=== PATIENT | female | born 1960 | race Caucasian/White ===

== ENCOUNTER 2020-08-11 10:03 | Day surgery (SDC) | payer BC ==
[2020-08-05 15:32] VITALS: BMI 35.4
[2020-08-11 10:43] VITALS: BP 127/70; PULSE 72; TEMP 98
[2020-08-11] MEDS ORDERED: LIDOCAINE HCL/PF 2% SDV 5ML VIAL ONE (11:13)
[2020-08-11] MEDS ORDERED: PROPOFOL 20 ML ONE (11:13)
[2020-08-11] MEDS ORDERED: ROCURONIUM BROMIDE 50 MG/5 ML SYRINGE ONE (11:14)
[2020-08-11] MEDS ORDERED: SUCCINYLCHOLINE CHLORIDE 200 MG/10 ML SYRINGE ONE (11:16)
[2020-08-12] MEDS ORDERED: MIDAZOLAM HCL 2 MG/2 ML SINGLE DOSE VIAL ONE (06:55)
[2020-08-12] MEDS ORDERED: ROPIVACAINE HCL 0.5% 30ML VIAL ONE (06:55)
[2020-08-12] MEDS ORDERED: BUPIVACAINE HCL/PF 0.25% (2.5MG/ML) 10 ML VIAL ONE (07:08)
== END 2020-08-11 12:00 | disposition home or self-care (01) ==
LOC: FASUSAT 10:03 → FM/S 10:03 → UNDOADMIN 10:03 → FASUSAT 12:00
PROVIDERS: ATTEND Surgery
PROC: 0D164ZB Bypass Stomach to Ileum, Percutaneous Endoscopic Approach (ICD-10-PCS; principal; 2020-08-11)
DX: Z53.8 Procedure and treatment not carried out for other reasons (principal); E66.01 Morbid (severe) obesity due to excess calories; Z68.35 Body mass index [BMI] 35.0-35.9, adult
CPT/HCPCS: 82962

== ENCOUNTER 2020-08-12 06:37 | Inpatient (IN) | payer BC ==
[~2020-08-12 06:37] MED LIST: BUPIVACAINE HCL/PF 0.25% (2.5MG/ML) 10 ML VIAL IJ ONE
[2020-08-12] MEDS ORDERED: PROMETHAZINE HCL 25 MG/1 ML VIAL IVPUSH PRN (07:11)
[2020-08-12] MEDS ORDERED: oxyCODONE HCL 5 MG TABLET PO PRN (07:11)
[2020-08-12] MEDS ORDERED: ONDANSETRON 4 MG/2 ML VIAL IVPUSH PRN ×2 (07:11→10:58)
[2020-08-12 07:12] VITALS: BMI 35.4
[2020-08-12] MEDS ORDERED: LACTATED RINGERS SOLUTION 1,000 ML IV SCH (07:15)
[2020-08-12] MEDS ORDERED: PROPOFOL 20 ML ONE (07:47)
[2020-08-12] MEDS ORDERED: ROCURONIUM BROMIDE 50 MG/5 ML SYRINGE ONE ×2 (07:48→09:08)
[2020-08-12] MEDS ORDERED: ceFAZolin SODIUM 1 GM VIAL ONE (08:25)
[2020-08-12] MEDS ORDERED: SODIUM CHLORIDE 0.9% P/F 10 ML VIAL IJ ONE (08:25)
[2020-08-12] MEDS ORDERED: DEXAMETHASONE SOD PHOSPHATE 4 MG/1 ML VIAL ONE ×2 (08:28→10:37)
[2020-08-12] MEDS ORDERED: ONDANSETRON 4 MG/2 ML VIAL ONE ×2 (08:28→10:37)
[2020-08-12] MEDS ORDERED: METOPROLOL TARTRATE 5 MG/5 ML VIAL ONE (10:05)
[2020-08-12] MEDS ORDERED: NEOSTIGMINE METHYLSULFATE 0.5 MG/ML - 10 ML MDV ONE (10:16)
[2020-08-12] MEDS ORDERED: GLYCOPYRROLATE 0.2 MG/1 ML VIAL ONE (10:16)
[2020-08-12] MEDS ORDERED: BUPIVACAINE HCL/PF 0.25% (2.5MG/ML) 10 ML VIAL IJ ONE (10:36)
[2020-08-12] MEDS ORDERED: MIDAZOLAM HCL 2 MG/2 ML SINGLE DOSE VIAL ONE (10:53)
[2020-08-12] MEDS ORDERED: HYDROmorphone HCl 2 MG/ML VIAL IVPB PRN (10:59)
[2020-08-12] MEDS ORDERED: SODIUM CHLORIDE 1,000 ML IV SCH (11:00)
[2020-08-12] MEDS ORDERED: ACETAMINOPHEN 1000 MG/100 ML VIAL (NON FORMULARY) IVPB ONE (11:01)
[2020-08-12 11:27] LABS: HEMATOCRIT 38.8 % (32.4-45.2); HEMOGLOBIN 12.7 GM/dl (10.7-15.3); MCHC 32.8 g/dl (32.0-36.0); MEAN CELL VOLUME 73.1 fl (80-96); MEAN PLT VOLUME 8.4 fl (7.5-11.1); PLATELET COUNT 433 K/MM3 (134-434); RBC 5.31 M/mm3 (3.60-5.2); RDW 15.2 % (11.6-15.6); WHITE BLOOD COUNT 13.2 K/mm3 (4.0-10.8)
[2020-08-12] MEDS ORDERED: ACETAMINOPHEN INJECTION 100 ML IVPB ONE (11:27)
[2020-08-12] MEDS ORDERED: FAMOTIDINE 20 MG/50 ML IVPB 20 MG/50 ML MG IVPB ONE (11:27)
[2020-08-12] MEDS ORDERED: METOCLOPRAMIDE HCL INJECTION 10 MG/2 ML VIAL ONE (11:27)
[2020-08-12] MEDS: METOCLOPRAMIDE HCL INJECTION 10 MG/2 ML VIAL IVPUSH SCH ×3 (11:30→23:07)
[2020-08-12] MEDS ORDERED: FAMOTIDINE 20 MG PREMIXED IVPB IVPB ONE (11:32)
[2020-08-12 11:34] LABS: ALBUMIN 3.6 g/dl (3.4-5.0); CALCIUM 7.7 mg/dl (8.5-10); POTASSIUM 4.7 mmol/L (3.5-5.1); TOT PROT 6.8 g/dl (6.4-8.2)
[2020-08-12] MEDS: HYDROmorphone HCl 2 MG/ML VIAL IVPB PRN ×2 (15:15→20:10)
[2020-08-12 20:14] LABS: HEMATOCRIT 37.4 % (32.4-45.2); HEMOGLOBIN 12.1 GM/dl (10.7-15.3); MCH 23.5 pg (25.7-33.7); MCHC 32.3 g/dl (32.0-36.0); MEAN CELL VOLUME 72.6 fl (80-96); MEAN PLT VOLUME 8.1 fl (7.5-11.1); PLATELET COUNT 431 K/MM3 (134-434); RBC 5.15 M/mm3 (3.60-5.2); RDW 14.9 % (11.6-15.6); WHITE BLOOD COUNT 13.9 K/mm3 (4.0-10.8)
[2020-08-12] MEDS: FAMOTIDINE 20 MG/50 ML IVPB 20 MG/50 ML MG IVPB SCH (21:12)
[2020-08-12 21:45] LABS: ALBUMIN 3.3 g/dl (3.4-5.0); BILIRUBIN,TOTAL 0.4 mg/dl (0.2-1); CALCIUM 7.3 mg/dl (8.5-10); CREATININE 0.9 mg/dl (0.55-1.3); TOT PROT 6.6 g/dl (6.4-8.2)
[2020-08-12 21:48] LABS: POTASSIUM 5.4 mmol/L (3.5-5.1)
[2020-08-12 22:24] LABS: ALBUMIN 3.5 g/dl (3.4-5.0); BILIRUBIN,TOTAL 0.1 mg/dl (0.2-1); CALCIUM 7.6 mg/dl (8.5-10); CREATININE 0.9 mg/dl (0.55-1.3); POTASSIUM 5.1 mmol/L (3.5-5.1); TOT PROT 6.6 g/dl (6.4-8.2)
[2020-08-13] MEDS: HYDROmorphone HCl 2 MG/ML VIAL IVPB PRN ×2 (01:24→19:52)
[2020-08-13] MEDS: METOCLOPRAMIDE HCL INJECTION 10 MG/2 ML VIAL IVPUSH SCH ×4 (06:48→22:45)
[2020-08-13 07:54] LABS: HEMATOCRIT 34.3 % (32.4-45.2); HEMOGLOBIN 10.7 GM/dl (10.7-15.3); MCH 23.1 pg (25.7-33.7); MCHC 31.2 g/dl (32.0-36.0); MEAN PLT VOLUME 8.3 fl (7.5-11.1); PLATELET COUNT 419 K/MM3 (134-434); RBC 4.64 M/mm3 (3.60-5.2); RDW 14.7 % (11.6-15.6); WHITE BLOOD COUNT 13.4 K/mm3 (4.0-10.8)
[2020-08-13 08:01] LABS: ALBUMIN 3.3 g/dl (3.4-5.0); CALCIUM 7.2 mg/dl (8.5-10); CREATININE 0.8 mg/dl (0.55-1.3); POTASSIUM 3.9 mmol/L (3.5-5.1); TOT PROT 6.1 g/dl (6.4-8.2)
[2020-08-13 08:09] LABS: BILIRUBIN,TOTAL 0.3 mg/dl (0.2-1)
[2020-08-13] MEDS: FAMOTIDINE 20 MG/50 ML IVPB 20 MG/50 ML MG IVPB SCH ×2 (09:48→21:23)
[2020-08-13] MEDS ORDERED: PT OWN MED DRAWER 7, Y5N ONE (12:32)
[2020-08-13] MEDS ORDERED: SODIUM CHLORIDE 1,000 ML IV SCH ×2 (13:00→19:15)
[2020-08-14] MEDS: HYDROmorphone HCl 2 MG/ML VIAL IVPB PRN (02:36)
[2020-08-14] MEDS: METOCLOPRAMIDE HCL INJECTION 10 MG/2 ML VIAL IVPUSH SCH ×3 (05:13→10:58)
[2020-08-14 09:00] VITALS: BP 138/78; PULSE 76
[2020-08-14] MEDS: FAMOTIDINE 20 MG/50 ML IVPB 20 MG/50 ML MG IVPB SCH (09:22)
[2020-08-14 11:41] VITALS: TEMP 98.5
== END 2020-08-14 12:35 | disposition home or self-care (01) | DRG 621 ==
LOC: FM/S 06:37
PROVIDERS: ADMIT Surgery; ATTEND Surgery
PROC: 0DNW4ZZ Release Peritoneum, Percutaneous Endoscopic Approach (ICD-10-PCS; 2020-08-12)
PROC: 0WJP4ZZ Inspection of Gastrointestinal Tract, Percutaneous Endoscopic Approach (ICD-10-PCS; 2020-08-12)
PROC: 0DB64Z3 Excision of Stomach, Percutaneous Endoscopic Approach, Vertical (ICD-10-PCS; principal; 2020-08-12 08:39)
DX: E66.01 Morbid (severe) obesity due to excess calories (principal); Z68.35 Body mass index [BMI] 35.0-35.9, adult; E11.9 Type 2 diabetes mellitus without complications; K66.0 Peritoneal adhesions (postprocedural) (postinfection)
CPT/HCPCS: 36415; 74240-TC-FY; 80053; 85027; 86850; 86900; 86901; 88305-TC; 94760; J0131